=== PATIENT | female | born 2000 | race Caucasian/White ===

== ENCOUNTER 2024-06-20 06:21 | Outpatient (REF) | payer OTHER, SELFPAY ==
--- NOTE | ~2024-06-20 | US_ITS ---
CLINICAL HISTORY: IRREGULAR PERIODS, PELVIC PAIN US pelvis transabdominal and transvaginal Comparison: None Findings: Transabdominal scanning performed for overall anatomy. Transvaginal scanning performed for additional detail. Anteverted uterus is 6.8 cm length. Normal myometrium. Endometrium 6.2 mm thickness. No lesions. Right ovary 3.2 x 2.4 x 1.2 cm. Left ovary 3.1 x 2 x 1.7 cm. Normal color Doppler of both ovaries. No free fluid. IMPRESSION: 1. Normal pelvic ultrasound This document has been electronically signed by: Norah Guan MD on 06/21/2024 15:24:42
--- OUTSIDE RECORDS SUMMARY | 2024-06-20 06:24 | XMS_ITS | Patient Health Record ---
Author Organization [facility] Address [address] [address] Care Team Providers Care Program Coordinator Name Role Phone Desmond Garcia Primary Care Provider Unavailabl e ALLERGIES No Known Allergies REASON FOR REFERRAL No Information MEDICATIONS Medication SIG (Take, Route, Frequency, Duration) Notes Start Date End Date Status Ibuprofen Active PLAN OF TREATMENT No Information Insurance Providers Payer Name Payer Address Payer Phone Subscriber Number Group Number Insured Name Patient Relationship to Insured Coverage Start Date Coverage End Date [facility] [address] [place] [phone] [id number] Kyara Velasco Self - patient is the insured 0
--- OUTSIDE RECORDS SUMMARY | 2024-06-20 06:24 | XMS_ITS | Encounter Summary ---
Author Organization [facility] Address [address] [place] [address] Care Team Providers Care Senior Process Engineer Name Role Phone Earl Mills MD Primary Care Provider [phone] Earl Mills MD Unavailable [phone] Encounter Details Date Type Department Care Team (Late st Contact Info) Description 04/20/2024 Community Orders [facility] Marla Peguero NP [address] [place] [address], [address] [place] [address] Amenorrhea (Primary Dx) Social History Tobacco Use Types Packs/Day Years Used Date Smoking Tobacco: Never Assessed Comments Unknown Sex and Gender Information Value Date Recorded Sex Assigned at Female 03/26/2018 10:37 AM EST Legal Sex Female 3:09 PM EST Gender Identity Female 03/26/2018 10:37 AM EST Sexual Orientation Not on file documented as of this encounter Plan of Treatment Not on file documented as of this encounter Results * HCG, Quantitative (04/26/2024 4:37 PM EST) hCG, Quant <2 <5 mIU/mL 04/26/2024 7:19 PM EST [facility] Comment: ? Weeks Post LMP ? Approximate HCG (last menstrual period) ? 3-4 ??weeks ? 9-130 IU/L ? 4-5 ??weeks ?72-2600 IU/L ? 5-6 ??weeks ? 850-89587 IU/L ? 6-7 ??weeks ?4000-407150 IU/L ? 7-12 weeks ? 77488-903637 IU/L ?12-16 weeks ? 90805-110456 IU/L ?16-29 weeks ?1400-86774 IU/L ?29-41 weeks ? 940-30500 IU/L ?? The B-HCG assays is cleared for use in the early detection of only. ??It is not approved for any other uses such as tumor marker screening, tumor marker monitoring, etc and it should not be performed for any other uses. Blood PERIPHERAL BLOOD SPECIMEN / Unknown Venipuncture / Unknown 04/26/2024 4:37 PM EST 04/26/2024 4:37 PM EST us Marla Peguero [employer] [employer] [facility] BLOOD ORDERABLES Final Res ult [facility] [address] [facility] ([place], [place]) [place] [address], * 17-HydroxyProgesterone (04/26/2024 4:37 PM EST) 17-Hydroxyproges terone 84 see note ng/dL 05/02/2024 2:00 PM EST [facility] Comment: ?? ### Unable to flag abnormal result(s), please refer ?to reference range(s) below: ?? Adult Female Reference Ranges ??for 17-Hydroxyprogesterone: ?Pre-Menopausal Mid Follicular: ??23 - 102 ng/dL ??Pre-Menopausal Surge: ? 67 - 349 ng/dL ??Pre-Menopausal Mid Luteal: ? 139 - 431 ng/dL ??Postmenopausal Phase: ?< or = 45 ng/dL ?Female Fahad Stages: ?II - III Females: ??18 - 220 ng/dL ??IV - V ?? Females: ??36 - 200 ng/dL ? Includes data from J Clin Endocrinol Metab. ??1990;73:674-686; J Clin Endocrinol Metab. ??1989;69;3206-2304; J Clin Endocrinol Metab. ??1994;78:226-270. Pediatr Res 1988;23:525-529. ??MedLinePlus (accessed 08/21/13). ?? This test was developed and its analytical performance characteristics have been determined by [employer] [facility] [place], [place]. It has not been cleared or approved by the U.S. Food and Drug Administration. This assay has been validated pursuant to the CLIA regulations and is used for clinical purposes. ?? Blood PERIPHERAL BLOOD SPECIMEN / Unknown Venipuncture / Unknown 04/26/2024 4:37 PM EST 04/26/2024 4:37 PM EST Narrative [facility] - 05/02/2024 2:00 PM EST Performing Organization Information: ?Site ID: [id number] ?Name: [facility] ?Address: [address] [place] [address] ?Director: MONAE ANDERSON MD,PHD Marla Peguero [employer] BLOOD ORDERABLES Final Res ult [facility] [address] [place] [address], * Testosterone, Free, Total and Bioavailable (04/26/2024 4:37 PM EST) [facility] Signature Testosterone 64 40 - 75 ng/dL [facility] [id number] 04/27/2024 9:34 AM EST [facility] Sex Hormone Binding Globulin 37.7 18.0 - 136.0 nmol/L [facility] [id number] 04/27/2024 9:34 AM EST [facility] Albumin, Blood 4.2 3.4 - 5.2 g/dL [facility] [id number] 04/27/2024 9:34 AM EST [facility] Testosterone, Bioavailable 24 >30 ng/dL ng/dL [facility] [id number] 04/27/2024 9:34 AM [facility] Testosterone, Free Calculated 11 <17 pg/mL [facility] [id number] 04/27/2024 9:34 AM EST [facility] Blood PERIPHERAL BLOOD SPECIMEN / Unknown Venipuncture / Unknown 04/26/2024 4:37 PM EST 04/26/2024 4:37 PM EST Marla Peguero [employer] [employer] BLOOD ORDERABLES Final Res ult Performing Organization Address [facility] [place] [address] * DHEA-Sulfate (04/26/2024 4:37 PM EST) DHEA Sulfate 247 105 - 519 ug/dL 04/27/2024 9:38 AM EST [facility] Blood PERIPHERAL BLOOD SPECIMEN / Unknown Venipuncture / Unknown 04/26/2024 4:37 PM EST 04/26/2024 4:37 PM EST Marla Peguero [employer] [employer] BLOOD ORDERABLES Final Res ult Performing Organization Address [facility] de Phone Number [address] [address] * Estradiol (04/26/2024 4:37 PM EST) Estradiol Level 32 See comment pg/mL 04/26/2024 7:22 PM EST [facility] Comment: Normally Menstruating Females: ?Follicular Phase: 21-251 ?Mid-Cycle Peak ?38-649 ?Luteal Phase ?21-312 Post-menopausal Females: ?? Not on HRT ?<10-28 ?? On HRT ?<10-144 Male Reference Range: 11-44 False high Estradiol results have been shown in patients being treated with or recently treated with Mifepristone. ??Based on the bioavailability, patients treated with Mifepristone should not be tested with this Estradiol assay for up to 2 weeks following treatment. ?? The drug Fulvestrant (Falsodex) may interfere with the COMMERCIAL CONSTRUCTION SUPERINTENDENT Estradiol assay leading to falsely elevated Estradiol results. ??The potential risks to health applies only to patients being treated with the drug Fulvestrant which may lead to increased Estradiol results. Blood PERIPHERAL BLOOD SPECIMEN / Unknown Venipuncture / Unknown 04/26/2024 4:37 PM EST 04/26/2024 4:37 PM EST Marla Peguero LAB BLOOD ORDERABLES Final Res ult Performing Organization Address [facility] de Phone Number [facility] [address] [place] [address], * Luteinizing Hormone (04/26/2024 4:37 PM EST) LH 10.0 See Comment mIU/mL 04/26/2024 7:21 PM EST [facility] Comment: Normally Menstruating Females: ?? Follicular Phase: 1.8-11.8 mIU/mL ?? Mid-Cycle Peak ?7.6-89.1 mIU/mL ?? Luteal Phase ?0.6-14.0 mIU/mL ?? Post-menopausal Females without HRT 5.2-62.0 mIU/mL Males: 0.6-12.1 mIU/mL LH calibration is referenced to the World Health Organization (WHO) Lutenizing Hormone Human, Pituitary 2nd International Standard 80/552. ?? Blood PERIPHERAL BLOOD SPECIMEN / Unknown Venipuncture / Unknown 04/26/2024 4:37 PM EST 04/26/2024 4:37 PM EST Marla Peguero LAB BLOOD ORDERABLES Final Res ult Performing Organization Address [facility] de Phone Number [facility] [address] [place] [address], * Follicle Stimulating Hormone (04/26/2024 4:37 PM EST) FSH 5.4 See Comment mIU/ml 04/26/2024 7:22 PM EST [facility] Comment: Males: 1-8 Normally Menstruating Females: ?? Follicular Phase: 4-13 ?? Mid-Cycle Peak ?5-22 ?? Luteal Phase ?2-13 Post-menopausal Females 20-138 Blood PERIPHERAL BLOOD SPECIMEN / Unknown Venipuncture / Unknown 04/26/2024 4:37 PM EST 04/26/2024 4:37 PM EST us Marla Peguero [employer] [facility] BLOOD ORDERABLES Final Res ult [facility] [address] [place] [address], documented in this encounter Visit Diagnoses Diagnosis Amenorrhea- Primary Absence of menstruation documented in this encounter Care Teams Senior Process Engineer Relationship Specialty Start Date End Date Earl Mills MD [address] [place] [address] PCP - General 01/10/24 Earl Mills MD [address] [place] [address] PCP - Insurance Assigned PCP 04/26/24 documented as of this encounter
--- OUTSIDE RECORDS SUMMARY | 2024-06-20 06:24 | XMS_ITS | Encounter Summary ---
Author Organization [facility] Perea [facility] Address [address] [place] [address] Care Team Providers Care Program Management Manager Name Role Phone Desmond Garcia MD Primary Care Provider [phone] Earl Mills MD Primary Care Provider [phone] Earl Mills MD Unavailable [phone] Encounter Details Date Type Department Care Team (Latest Contact Info) Description 12/14/2018 Lab Requisition [facility] [address] [place] [address] Marla Peguero NP 21 [facility], [facility] [address] [place] [address] Encounter for gynecological examination (general) (routine) without abnormal findings; Encounter for screening for infections with a predominantly sexual mode of transmission Social History Tobacco Use Types Packs/Day Years [...] on file documented as of this encounter Procedures Procedure Name Priority Date/Time Associated Diagnosis Comments AMPLIFIED PROBE, CHLAM AND GC, SWAB Routine 12/14/2018 8:33 PM EDT Encounter for gynecological examination (general) (routine) without abnormal findings Encounter for screening for infections with a predominantly sexual mode of transmission documented in this encounter Results * Chlamydia and GC, Amplified Probe, Swab (12/14/2018 8:33 PM EDT) N. gonorrhoeae by Amplified Probe Negative Negative 12/15/2018 11:23 AM EDT [facility] C. trachomatis by Amplified Probe Negative Negative 12/15/2018 11:23 AM EDT [facility] Specimen from genital system (specimen) 12/14/2018 8:33 PM EDT 12/14/2018 8:33 PM EDT Narrative [facility] - 12/15/2018 11:23 AM EDT This test is approved for vaginal, endocervical, thin prep and urine specimens. The reliability of testing from other sites has not been established. This assay is not intended to be used as a test of cure; a culture is suggested. Testing performed using the Eleonora Elizabeth real time PCR platform. us Marla Peguero LUNCH WAGON OPERATOR MICROBIOLOGY - GENERAL ORDERAB LES Final Result [facility] [address] [place] [address], documented in this encounter Visit Diagnoses Diagnosis Encounter for gynecological examination (general) (routine) without abnormal findings Encounter for screening for infections with a predominantly sexual mode of transmission documented in this encounter Additional Health Concerns Infection Onset Date Last Indicated Resolved Time COVID Suspect 01/29/2020 02/02/2020 02/05/2020 1:5 5 AM EST COVID Suspect 02/07/2020 02/07/2020 03/08/2020 12: 25 AM EST documented as of this encounter Care Teams Program Management Manager Relationship Specialty Start Date End Date Desmond Garcia MD [address] [place] [address] PCP - General Pediatric Medicine 03/26/18 01/09/24 Earl Mills MD [address] [place] [address] PCP - General 01/10/24 Earl Mills MD [address] [place] [address] PCP - Insurance Assigned PCP 04/26/24 documented as of this encounter
--- OUTSIDE RECORDS SUMMARY | 2024-06-20 06:24 | XMS_ITS | Patient Health Record ---
Author Organization [facility] Address [address] [facility] [place] [id number] Care Team Providers Care Legal Biller Name Role Phone Desmond Garcia Primary Care Provider Zeke Lunsford Unavailable [phone] Reason For Referral No Information Social History Tobacco Use: Social History Observation Description Date Details (start date - stop date) Never Smoker NA - NA Tobacco Use: Question Answer Notes Never smoked Problems Problem Type SNOMED Code ICD Code Onset Dates Problem Status W/U Status Risk Notes Problem Knee sprain (19039977) Knee sprain (844.9) Active confirmed Plan Of Treatment Pending Test Test Name Order Date LE - ACTIVE ICE KNEE 08/13/2014 LE - SHORT/TALL VICTOR BOOT 07/15/2018 LE - HINGED GRIPPER KNEE BRACE 5 Insurance Providers Payer Name Payer Address Payer Phone Subscriber Number Group Number Insured Name Patient Relationship to Insured Coverage Start Date Coverage End Date [facility] [address] [place] [id number] Tam Velasco Child - Insured has Financial Responsibility Medical (General) History Medical History History ICD Code drastic temp change Surgical History Surgery Date(Month/Year)
--- OUTSIDE RECORDS SUMMARY | 2024-06-20 06:24 | XMS_ITS | Encounter Summary ---
Author Organization [facility] Pe[facility] Address [address] [place] [address] Care Team Providers Care Beekeeper Farmer Name Role Phone Earl Mills MD Primary Care Provider [phone] Earl Mills MD Unavailable [phone] Encounter Details Date Type Department Care Team (Late st Contact Info) Description 01/10/2024 Lab Requisition [facility] [address] [place] [address] Marla Peguero NP 21 [facility], [facility] [address] [place] [address] Ulceration of vulva Social History Tobacco Use Types Packs/Day Years [...] Procedure Name Priority Date/Time Associated Diagnosis Comments HERPES SIMPLEX BY PCR, CSF & NON-STERILE SITES Routine 01/10/2024 1:00 PM EST Ulceration of vulva documented in this encounter Results * (ABNORMAL) Herpes Simplex by PCR, Blood CSF & Non-sterile Sites (01/10/2024 1:00 PM EST) Herpes Simplex Virus PCR TYPE 1 DNA DETECTED( A) Not Detected 01/12/2024 5:24 PM EST [facility] xOther (Other (specify)) 01/10/2024 1:00 PM EST 01/10/2024 8:35 PM EST Narrative [facility] - 01/12/2024 5:24 PM EST This test was developed and its performance characteristics determined by [facility] laboratory. ??It has not been cleared or approved by the U.S. Food and Drug Administration. ??FDA does not require this test to go through premarket FDA review. This test is used for clinical purposes. ??It should not be regarded as investigational or for research. ??This laboratory is certified under Clinical Laboratory Improvement Amendments (CLIA) as qualified to perform high complexity clinical laboratory testing. Method: Polymerase chain reaction. Marla Peguero WIND FARM OPERATIONS MANAGER MICROBIOLOGY - GENERAL ORDERAB LES Final Result [place] [id number] documented in this encounter Visit Diagnoses Diagnosis Ulceration of vulva documented in this encounter Care Teams Beekeeper Farmer Relationship Specialty Start Date End Date Earl Mills MD [address] [place] [address] PCP - General 01/10/24 Earl Mills MD [address] [place] [address] PCP - Insurance Assigned PCP 04/26/24 documented as of this encounter
--- OUTSIDE RECORDS SUMMARY | 2024-06-20 06:24 | XMS_ITS | Encounter Summary ---
Author Organization Aly[facility] Perea [facility] Address [address] [place] [address] Care Team Providers Care Retread Mold Operator Name Role Phone Desmond Garcia MD Primary Care Provider [phone] Earl Mills MD Primary Care Provider [phone] Earl Mills MD Unavailable [phone] Encounter Details Date Type Department Care Team (Latest Contact Info) Description 12/20/2019 Lab Requisition [facility] C[facility] [address] [place] [address] Marla Peguero NP 21 [facility], [facility] [address] [place] [address] Encounter for gynecological examination (general) (routine) without [...] AMPLIFIED PROBE, CHLAM AND GC, SWAB Routine 12/20/2019 8:55 PM EDT Encounter for gynecological examination (general) (routine) without abnormal findings Encounter for screening for infections with a predominantly sexual mode of transmission documented in this encounter Results * Chlamydia and GC, Amplified Probe, Swab (12/20/2019 8:55 PM EDT) N. gonorrhoeae by Amplified Probe Negative Negative 12/21/2019 3:40 PM EDT [facility] C. trachomatis by Amplified Probe Negative Negative 12/21/2019 3:40 PM EDT [facility] Specimen from genital system (specimen) 12/20/2019 8:55 PM EDT 12/20/2019 8:56 PM EDT Narrative [facility] - 12/21/2019 3:40 PM EDT This test is approved for vaginal, endocervical, thin prep and urine specimens. The reliability of testing from other sites has not been established. This assay is not intended to be used as a test of cure; a culture is suggested. Testing performed using the Eleonora Elizabeth real time PCR platform. us Marla Peguero ASSOCIATE PROFESSOR OF LIBRARY MEDIA MICROBIOLOGY - GENERAL ORDERAB LES Final Result [facility] [address] [place] [address], documented in this encounter Visit Diagnoses Diagnosis [...] documented as of this encounter Care Teams Retread Mold Operator Relationship Specialty Start Date End Date Desmond Garcia MD [address] [place] [address] PCP - General Pediatric Medicine 03/26/18 01/09/24 Earl Mills MD [address] [place] [address] PCP - General 01/10/24 Earl Mills MD [address] [place] [address] PCP - Insurance Assigned PCP 04/26/24 documented as of this encounter
--- OUTSIDE RECORDS SUMMARY | 2024-06-20 06:24 | XMS_ITS | Encounter Summary ---
Author Organization Alyx Perea [facility] Address [address] [place] [address] Care Team Providers Care Water Supervisor Name Role Phone Desmond Garcia MD Primary Care Provider [phone] Earl Mills MD Primary Care Provider [phone] Earl Mills MD Unavailable [phone] Encounter Details Date Type Department Care Team (Late st Contact Info) Description 02/10/2020 Lab Requisition [facility] [address] [place] [address] Mayra Pantoja MD [address] [place] [address] Viral infection, unspecified Social History Tobacco Use Types Packs/Day Years [...] Procedure Name Priority Date/Time Associated Diagnosis Comments CULTURE, AEROBIC, STREP A, THROAT Routine 02/10/2020 10:30 AM EST Viral infection, unspecified documented in this encounter Results * Culture, Aerobic, Strep A, throat (02/10/2020 10:30 AM EST) Culture No Beta hemolytic Streptococcus group A, C or G CHAKA 02/12/2020 6:47 AM EST [facility] xThroat STRUCTURE OF ANTERIOR PORTION OF NECK / Unknown 02/10/2020 10:30 AM EST 02/10/2020 12:48 PM EST Mayra Pantoja MD MICROBIOLOGY - GENERAL ORDERA BLES Final Result [facility] [address] [place] [address], documented in this encounter Visit Diagnoses Diagnosis Viral infection, unspecified documented in this encounter Additional Health Concerns Infection Onset Date Last Indicated Resolved Time COVID Suspect 02/07/2020 02/07/2020 03/08/2020 12: 25 AM EST documented as of this encounter Care Teams Water Supervisor Relationship Specialty Start Date End Date Desmond Garcia MD [address] [place] [address] PCP - General Pediatric Medicine 03/26/18 01/09/24 Earl Mills MD [address] [place] [address] PCP - General 01/10/24 Earl Mills MD [address] [place] [address] PCP - Insurance Assigned PCP 04/26/24 documented as of this encounter
--- OUTSIDE RECORDS SUMMARY | 2024-06-20 06:24 | XMS_ITS | Clinical Summary ---
Author Organization [facility] Address [address] [place] [address] Care Team Providers Care Credit Officer Name Role Phone Earl Mills MD Primary Care Provider [phone] Allergies Active Allergy Reactions Criticality Noted Date Comments Amoxicillin 09/06/2023 rash Medications Medication Sig Dispensed Refills Start Date End Date Status cetirizine (ZyrTEC) 10 mg tablet Take 10 mg by mouth once daily. Active valACYclovir (Valtrex) 500 mg tablet Take by mouth. 01/10/2024 Active escitalopram (Lexapro) 5 mg tabletIndications:Mod erate anxiety Take 1 tablet (5 mg) by mouth once daily. 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 Discussed with patient. Resolved Problems Problem Noted Date Diagnosed Date Resolved Date Leukocytosis 09/22/2023 02/28/2024 Overview (09/22/2023): CBC will be rechecked. It is quite possible she had some kind of inflammation or infection at that time. Feeding drive 09/22/2023 02/28/2024 Overview (09/22/2023): Labs will be checked. Migraine without aura and wi thout status migrainosus, not intractable 02/25/2023 02/25/2023 02/25/2023 Urticaria due to cold 02/25/20232023 Overview (02/25/2023): Since history. No hx of anaphylaxis. No med or food allergys. No atopy, no asthma. Uses oral contraception 02/25/202311/2023 Diagnosis unknown 10/20/2012 02/25/2023 02/25/2023 Overview (02/25/2023): Text: Cold Urticaria Encounters Date Type Department Care Team Description 04/26/2024 External Contact EXT REF LAB [address] [address] Rom, Default Authenticator from Last 3 Months Immunizations Name Administration Dates Next Due Influenza, injectable, quadr ivalent, preservative free 02/07/2023,02/24/2022,02/21/2021,01/17,01/16/2019 Meningococcal MCV4P 01/16/2019 Tdap 02/21/2021 Family History Medical History Relation Name Comments HTN Father No Known Problems Father's Brother No Known Problems Father's Sister old age Maternal Grandfather Anxiety disorder Mother No Known Problems Mother's Brother No Known Problems Mother's Sister Colon cancer Paternal Grandfather Anxiety disorder Sister x2 Breast cancer Neg Hx Clotting disorder Neg Hx Ovarian cancer Neg Hx Uterine cancer Neg Hx Relation Name Status Comments Father Alive Father's Brother Father's Sister Maternal Grandfather Maternal Grandmother Mother Alive Mother's Brother Mother's Sister Paternal Grandfather Paternal Grandmother Alive Sister x2 Social History Tobacco Use Types Packs/Day Years Used Date Smoking Tobacco: Never Smokeless Tobacco: Never Tobacco Cessation:Counseling Given: Not Answered Alcohol Use Standard Drinks/Week Comments Yes 4 (1 standard drink = 0.6 oz pur e alcohol) Humiliation, Afraid, Rape, and Kick questionnair e Answer Date Recorded Within the last year, have y ou been afraid of your partner or ex-partner? No 08/04/2023 Within the last year, have y ou been humiliated or emotionally abused in other ways by your partner or ex-partner? No Within the last year, have y ou been kicked, hit, slapped, or otherwise physically hurt by your partner or ex-partner? No 08/04/2023 Within the last year, have y ou been raped or forced to have any kind of sexual activity by your partner or ex-partner? No 08/04/2023 AUDIT-C Answer Date Recorded Q1: How often do you have a drink containing alc ohol? 2-3 times a week 02/28/2024 Q2: How many drinks containi ng alcohol do you have on a typical day when you are drinking? 1 or 2 02/28/2024 Q3: How often do you have si x or more drinks on one occasion? Never 02/28/2024 Overall Financial Resource Strain (CARDIA) Answe r Date Recorded How hard is it for you to pa y for the very basics like food, housing, medical care, and heating? Not hard at all 02/28/2024 PHQ-2 Answer Date Recorded Patient Health Questionnaire-2 Score 0 02/28/2024 [facility] - Occupational Stress Questionnaire Answer Date Recorded Do you feel stress - tense, restless, nervous, or anxious, or unable to sleep at night because your mind is troubled all the time - these days? Not at all 07/22/2022 Exercise Vital Sign Answer Date Recorde d On average, how many days pe r week do you engage in moderate to strenuous exercise (like a brisk walk)? 7 days 08/04/2023 On average, how many minutes do you engage in exercise at this level? 60 min 08/04/2023 Hunger Vital Sign Answer Date Recorded Within the past 12 months, y ou worried that your food would run out before you got the money to buy more. Never true 02/28/20 24 Within the past 12 months, t he food you bought just didn't last and you didn't have money to get more. Never true 02/28/2024 PRAPARE - Transportation Answer Date Re corded In the past 12 months, has l ack of transportation kept you from medical appointments or from getting medications? No 02/06 In the past 12 months, has l ack of transportation kept you from meetings, work, or from getting things needed for daily living? No 02/28/2024 Housing Stability Vital Sign Answer Joseph e Recorded In the last 12 months, was t here a time when you were not able to pay the mortgage or rent on time? No 11/15/2023 Number of Places Lived in the Last Year Not on f ile 11/15/2023 In the last 12 months, was t here a time when you did not have a steady place to sleep or slept in a half-way (including now)? No 11/15/2023 Housing Stability Vital Sign Answer Joseph e Recorded In the last 12 months, was t here a time when you were not able to pay the mortgage or rent on time? No 02/28/2024 Number of Times Moved in the Last Year Not on fi le 02/28/2024 At any time in the past 12 m [facility], were you homeless or living in a half-way (including now)? No 02/28/2024 Sex and Gender Information Value Date Recorded Sex Assigned at Not on file Gender Identity Not on file Sexual Orientation Not on file Job Start Date Occupation Industry Not on file Not on file Not on file Last Filed Vital Signs Vital Sign Reading Time Taken Comments Blood Pressure 118/64 02/28/2024 9:07 AM EST Pulse 83 02/28/2024 9:07 AM EST Temperature 36.9 ??C (98.5 ??F) 02/28/2024 9:07 AM ES T Respiratory Rate - - Oxygen Saturation 99% 02/28/2024 9:07 AM EST Inhaled Oxygen Concentration - - Weight 79.9 kg (176 lb 3.2 oz) 02/28/2024 9:07 A M EST Height 172.7 cm (5' 8 ) 02/28/2024 9:07 AM EST Body Mass Index 26.79 02/28/2024 9:07 AM EST Plan of Treatment Upcoming Encounters Date Type Department Care Team (Late st Contact Info) Description 03/06/2025 8:00 AM EST Office Visit [facility] Danny [address] [place] [phone] Earl Mills MD [address] [place] [id number] Health Maintenance Due Date Last Done Comments HIV Screening 2002 MMR Vaccines (1 of 1 - Standard series) 10/05/2003 Varicella Vaccines (1 of 2 - 13+ 2-dose series) 10/05/2015 HPV Vaccines (1 - 3-dose series) 2017 Meningococcal B Vaccine (1 of 2 - Standard) 2018 Hepatitis B Vaccines (1 of 3 - 19+ 3-dose series) 2021 Pap Smear 10/05/2023 COVID-19 Vaccine ( - season) 2023 03/03/2021, 07/01/2020, 06/03/2020 Depression Screening 03/08/2024 02/28/2024 Chlamydia Screening 08/03/2024 08/04/2023, 08/04/2023, 07/22/2022, Additional history exists Influenza Vaccine (Season Ended) 2024 02/07/2023, 02/24/2022, 02/21/2021, Additional history exists DTaP/Tdap/Td Vaccines (2 - Td or Tdap) 02/21/2031 02/21/2021 Meningococcal Vaccine Completed 01/16/2019 Hepatitis C Screening Completed 03/02/2023 HIB Vaccines Aged Out No longer eligi ble based on patient's age to complete this topic Hepatitis A Vaccines Aged Out No long er eligible based on patient's age to complete this topic IPV Vaccines Aged Out No longer eligi ble based on patient's age to complete this topic Pneumococcal Vaccine: Pediatrics (0 to 5 Years) and At-Risk Patients (6 to 49 Years) Aged Out No longer eligible based on patient's age to complete this topic Rotavirus Vaccines Aged Out No longer eligible based on patient's age to complete this topic Procedures Procedure Name Priority Date/Time Associated Diagnosis Comments 17-HYDROXYPROGESTERO NE Routine 04/26/2024 4:37 PM EST DHEA-SULFATE Routine 04/26/2024 4:37 PM EST TESTOSTERONE, FREE, TOTAL AND SEX HORMONE BINDING GLOBULIN Routine 04/26/2024 4:37 PM EST ESTRADIOL Routine 04/26/2024 4:37 PM EST FOLLICLE STIMULATING HORMONE Routine 04/26/2024 4:37 PM EST LH Routine 04/26/2024 4:37 PM EST HCG, QUANTITATIVE, Routine 04/26/2024 4:37 PM EST GC/CT (AMP DNA) Routine 08/04/2023 4:00 PM EDT Screen for STD (sexually transmitted disease) HCV AB W/REFLEX QUANT PCR (SCREENING) Routine 03/02/2023 11:30 AM EST from Last 3 Months or Most Recently Relevant to Health Maintenance Results * 17-Hydroxyprogesterone (04/26/2024 4:37 PM EST) [facility] 17-HYDROXYPROGES TERONE 84 see note ng/dL CHARISSE PAYTON Comment: ?? ### Unable to flag abnormal [...] Endocrinol Metab. ??1990;73:674-686; J Clin Endocrinol Metab. ??1989;69;2343-6350; J Clin Endocrinol Metab. ??1994;78:226-270. Pediatr Res 1988;23:525-529. ??MedLinePlus (accessed 08/21/13). ?? This test was developed and its analytical performance characteristics have been determined by [facility] [place]. It has not been cleared or approved by the U.S. Food and Drug Administration. This assay has been validated pursuant to the CLIA regulations and is used for clinical purposes. ?? Blood 04/26/2024 4:37 PM EST 04/26/2024 11:36 PM EST Narrative CHARISSE ATTA - 05/02/2024 2:00 PM EST [address] [address] Ordering Provider: MARLA HARRIS Copied To: ?? Performing Organization Information: ?Site ID: [id number] ?Name: [employer] ?Address: [address] [place] [address] ?Director: MONAE ANDERSON MD,PHD Marla Smallwood NP LAB BLOOD ORDERAB LES Performing Organization Address City/[facility] Co de Phone Number CHARISSELUDIVINA PAYTON [address] [place] [address], * DHEA-sulfate (04/26/2024 4:37 PM EST) DHEA SULFATE 247 105 - 519 ug/dL CHARISSE PAYTON Comment:Regulator Tester: MOHIT GARCIA Blood 04/26/2024 4:37 PM EST 04/27/2024 8:43 AM EST Berta CHARISSE TATA - 04/27/2024 9:38 AM EST [address] [address] Ordering Provider: MARLA HARRIS Copied To: ?? Marla Smallwood NP LAB BLOOD ORDERAB LES Performing Organization Address [facility] de Phone Number CHARISSE KOWALSKI[address] * Estradiol (04/26/2024 4:37 PM EST) ESTRADIOL 32 See comment pg/mL CHARISSE PAYTON Comment: Normally Menstruating Females: ?Follicular Phase: 21-251 [...] drug Fulvestrant (Falsodex) may interfere with the DIRECTOR PROFESSIONAL SERVICES Estradiol assay leading to falsely elevated Estradiol results. ??The potential risks to health applies only to patients being treated with the drug Fulvestrant which may lead to increased Estradiol results. Regulator Tester: ROGER DONOVAN Blood 04/26/2024 4:37 PM EST 04/26/2024 6:05 PM EST Narrative WILBUR TATA - 04/26/2024 7:22 PM EST [facility] [address] [place] [address] Ordering Provider: MARLA HARRIS Copied To: ?? Marla Smallwood ASSISTANT HVAC MECHANIC LAB BLOOD ORDERAB LES WILBUR TATA [address] [place] [address], * Testosterone, Free, Total and Sex Hormone Binding Globulin (04/26/2024 4:37 PM EST) TESTOSTERONE 64 40 - 75 ng/dL [facility] SHBG SEX HORMONE BINDING GLOBULIN 37.7 18.0 - 136.0 nmol/L [facility] ALBUM[facility], BLOOD 4.2 3.4 - 5.2 g/dL [facility] BIOAVAILABLE TESTOSTERONE 24 >30 ng/dL ng/dL [facility] CALC FREE TESTOSTERONE PGML 11 <17 pg/mL [facility] Comment:Regulator Tester: MOHIT GARCIA Blood 04/26/2024 4:37 PM EST 04/27/2024 8:43 AM EST Narrative CHARISSE PAYTON - 04/27/2024 9:34 AM EST [facility] [address] [place] [address] Ordering Provider: MARLA HARRIS Copied To: ?? Marla Smallwood ASSISTANT HVAC MECHANIC LAB BLOOD ORDERAB LES Performing Organization Address City/State/[facility] Co de Phone Number CHARISSE PAYTON [address] [place] [address], * hCG, quantitative, (04/26/2024 4:37 PM EST) HCG, QUANTITATIVE <2 <5 mIU/mL MADYSON BART PAYTON Comment: ? Weeks Post LMP ? Approximate HCG (last menstrual period) ? 3-4 ??weeks ? 9-130 IU/L ? 4-5 ??weeks ?72-2600 IU/L ? 5-6 ??weeks ? 850-12630 IU/L ? 6-7 ??weeks ?4000-047190 IU/L ? 7-12 weeks ? 10195-184497 IU/L ?12-16 weeks ? 14742-413388 IU/L ?16-29 weeks ?1400-47264 IU/L ?29-41 weeks ? 940-61437 IU/L ?? The B-HCG assays is cleared for use in the early detection of only. ??It is not approved for any other uses such as tumor marker screening, tumor marker monitoring, etc and it should not be performed for any other uses. Regulator Tester: ROGER DONOVAN Blood 04/26/2024 4:37 PM EST 04/26/2024 6:05 PM EST Narrative CHARISSE PAYTON - 04/26/2024 7:19 PM EST [facility] [address] [place] [address] Ordering Provider: MARLA HARRIS Copied To: ?? Marla Smallwood ASSISTANT HVAC MECHANIC LAB BLOOD ORDERAB LES Performing Organization Address [facility] de Phone Number CHARISSELUDIVINA PAYTON [address] [place] [address], * LH (04/26/2024 4:37 PM EST) LUTEINIZING HORMONE 10.0 See Comment mIU/mL CHARISSE PAYTON Comment: Normally Menstruating Females: ?? Follicular Phase: 1.8-11.8 mIU/mL ?? Mid-Cycle Peak ?7.6-89.1 mIU/mL ?? Luteal Phase ?0.6-14.0 mIU/mL ?? Post-menopausal Females without HRT 5.2-62.0 mIU/mL Males: 0.6-12.1 mIU/mL LH calibration is referenced to the World Health Organization (WHO) Lutenizing Hormone Human, Pituitary 2nd International Standard 80/552. ?? Regulator Tester: ROGER DONOVAN Blood 04/26/2024 4:37 PM EST 04/26/2024 6:05 PM EST Narrative CHARSISE PAYTON - 04/26/2024 7:21 PM EST [facility] [address] [place] [address] Ordering Provider: MARLA HARRIS Copied To: ?? Marla Smallwood ASSISTANT HVAC MECHANIC LAB BLOOD ORDERAB LES Performing Organization Address [facility] Co de Phone Number WILBUR TATA [address] [place] [address], * FSH (04/26/2024 4:37 PM EST) FSH 5.4 See Comment mIU/ml CHARISSE PAYTON Comment: Males: 1-8 Normally Menstruating Females: ?? Follicular Phase: 4-13 ?? Mid-Cycle Peak ?5-22 ?? Luteal Phase ?2-13 Post-menopausal Females 20-138 Regulator Tester: ROGER DONOVAN Blood 04/26/2024 4:37 PM EST 04/26/2024 6:05 PM EST Narrative CHARISSE PAYTON - 04/26/2024 7:22 PM EST [facility] [address] [place] [address] Ordering Provider: MARLA HARRIS Copied To: ?? Marla Smallwood ASSISTANT HVAC MECHANIC LAB BLOOD ORDERAB LES CHARISSE PAYTON [address] [place] [address], * Gonorrhea/ Chlamydia (Amp DNA) (08/04/2023 4:00 PM EDT) Pathologist [facility] C trach RAJI Negative Negative [facility] 1 N gonorrhoeae RAJI Negative Negative [facility] 1 Swab Endocervical structure / Unknown 08/04/2023 4:00 PM EDT 08/04/2023 Comment:CervEndo [id number]:Vi si Narrative [facility] - 08/06/2023 6:45 AM EDT Performed at: ??01 - [facility] [address] ??[id number] Regulator Tester: Lydia Hewitt MD, Phone: ??[phone] Marla Smallwood ASSISTANT HVAC MECHANIC LAB MICROBIOLOGY - GENERAL ORDERABLES Performing Organization Address City/[facility]/ZIP Co de Phone Number [facility] [address] [facility] 1 * Hepatitis C antibody (03/02/2023 11:30 AM EST) Hep C Virus Ab Non Reactive Non Reactive [facility] 1 Comment: HCV antibody alone does not differentiate between previously resolved infection and active infection. Equivocal and Reactive HCV antibody results should be followed up with an HCV RNA test to support the diagnosis of active HCV infection. 03/02/2023 11:3 0 AM EST 03/02/2023 Narrative [facility] - 03/03/2023 4:06 AM EST Performed at: ??01 - [facility] [place] [address], [place], [place] ??[id number] Regulator Tester: Lydia Hewitt MD, Phone: ??[phone] Earl Mills MD LAB BLOOD ORDERABLES [facility] [address] [facility] 1 from Last 3 Months or Most Recently Relevant to Health Maintenance Care Teams Credit Officer Relationship Specialty Start Date End Date Earl Mills MD [address] [place] [phone] PCP - General Family Medicine 02/25/23
--- OUTSIDE RECORDS SUMMARY | 2024-06-20 06:24 | XMS_ITS | Encounter Summary ---
Author Organization [facility] Address [address] [place] [address] Care Team Providers Care Manager Of Internal Audit Name Role Phone Joselyn Romero MD Primary Care Provider [phone] Desmond Garcia MD Primary Care Provider [phone] Earl Mills MD Primary Care Provider [phone] Earl Mills MD Unavailable [phone] Encounter Details Date Type Department Care Team (Late st Contact Info) Description 10/20/2012 Clinical Conversion Encounter Department of Allergy and Immunology [address] [place] [id number] Kimani Montana MD Social History Tobacco Use Types Packs/Day Years Used Date Smoking Tobacco: Never Assessed Comments Unknown Sex and Gender Information Value Date Recorded Sex Assigned at Female 03/26/2018 10:37 AM EST Legal Sex Female 3:09 PM EST Gender Identity Female 03/26/2018 10:37 AM EST Sexual Orientation Not on file documented as of this encounter Progress Notes * Kimani Montana MD - 04/24/2014 10:00 AM EST [id number] VELASCO [place], [place]. History of Present Illness Kyara is a 12-year-old girl with a istory of an urticarial-like eruption associated with irritability and fatigue and with mild puffiness of the hands and feet at times triggered by changes in air or water temperature from warm to cool. Although it has some features of cold-induced urticaria, it is not always typical, especially in the spring and fall There are some elements of the history that sounds suspicious for familial cold autoinflammatory syndrome. There is no family history, however. Since her visit to see me in August, she had 2 significant but very brief episodes lasting one day and one minor episode. Both of the significant episodes resulted in typical urticarial lesions as documented on an I-phone. In one instance she had large raised hives on her buttocks and on the other occasion she had significant hives that appear to be mostly flat up and down the back of her legs with some involvement of her buttocks as well. She had no fever or fatigue. Benadryl seemed to help. Her episodes during the spring and fall often last for days or several weeks. She never took cetirizine this summer. Her complete workup as noted below was negative. She saw Dr. Cavazos today in [place]. She does not believe she has urticarial vasculitis and suggested Xyzal possibly as a treatment. Mom says these episodes are different than the ones in the spring. Claritin did not help. Active Problems Arthralgias In Multiple Sites 719.49 Cold Urticaria 708.2 Fatigue 780.79 Urticaria 708.9 Current Meds Cetirizine HCl 10 MG Oral Tablet; Take 1 tab(s) orally daily; Therapy: [id number] to (Evaluate:[id number]) Allergies No Known Drug Allergies Vitals [facility] Vitals Data Includes: Current Encounter [id number] 03:38PM Blood Pressure: 103 / 62, RUE, Sitting Heart Rate: 86 BMI Calculated: 19.62 BSA Calculated: 1.34 Height: 4 ft 10.5 in Weight: 96 lb Height Source: Actual Height Weight Source: Actual Weight Pain Score: 0 Allergy Status Reviewed: Yes Safe at Home: Yes Chaperoned During Appointment: Yes Chaperoned By: Parent Physical Examination: The patient is well-developed, well-nourished, alert, and oriented and in no acute distress. Skin: Clear without rash. TMs: Both TMs appear normal. Ear canals are clear. Eyes: Conjunctivae appear normal without injection. There was no ocular discharge. Nose: Nasal turbinates appear 3+ edematous and pale. Clear mucoid discharge. Septum appears to be midline. Oropharynx: No postnasal discharge or thrush. No other abnormalities noted. Neck: No significant lymphadenopathy or mass noted. Lungs: Clear by ausculation. No wheezes, rhonchi or rales detected. Heart: Regular rate and rhythm. No murmur was heard. Extremities: No clubbing, cyanosis or edema. Assessment: Atypical cold-induced urticaria. ? familial cold autoinflammatory syndrome. Plan: 1. Cetirizine 10 mg once daily on a regular trial basis 2. Consider Xyzal as an alternative if she can't tolerate cetirizine 3. Prednisone 30 mg once daily for 2 or 3 days if necessary 4. Consider pedi rheumatology evaluation if no improvement. Results/Data Selected Results [id number] 11:01AM CBC with Differential Hematocrit: 35.3 % Reference Range 35.0-44.0 Hemoglobin: 11.7 G/DL Reference Range 11.7-14.8 MCV: 86 FL Reference Range 76-89 Platelet Count: 347 K/uL Reference Range 150-450 RBC: 4.12 M/uL Reference Range 3.50-4.40 RDW: 13.7 % Abnormal High Reference Range 11.5-13.4 WBC: 5.15 K/uL Reference Range 4.50-13.[address]: 0.02 K/uL Reference Range 0.02-0.[address]: 0.04 K/uL Reference Range 0.00-0.[address]: 2.57 K/uL Reference Range 1.4-6.[address]: 2.08 K/uL Reference Range 1.2-3.[address]: 0.44 K/uL Reference Range 0.2-1.0 Basophil: 0 % Eosinophil: 1 % Lymphocyte: 40 % Monocyte: 9 % Polys: 50 % WBC: 5.15 K/uL Reference Range 4.50-13.50 C-Reactive Protein (CRP) C-Reactive Protein: <1 MG/L Reference Range <5 Cryofibrinogen Cryofibrinogen: 0 % Reference Range <1 Anti-Thyroglobulin Antibody Thyroglobulin Ab: <0.9 IU/ML Anti-Thyroid Peroxidase Antibody Anti-Thyroid Perox Ab: <60 IU/ML Reference Range <60 Antinuclear Antibody Screen Antinuclear Ab Screen: NEG Reference Range NEG Cryoglobulin Cryoglobulin: 0 % Reference Range <1 Complement Activity, Total CH50: 101 UNITS Signatures Electronically signed by : KIMANI MONTANA MD; Oct 20 2012 4:40PM documented in this encounter Plan of Treatment Not on file documented as of this encounter Visit Diagnoses Not on filedocumented in this encounter Additional Health Concerns Infection Onset Date Last Indicated Resolved Time COVID Suspect 01/29/2020 02/02/2020 02/05/2020 1:5 5 AM EST COVID Suspect 02/07/2020 02/07/2020 03/08/2020 12: 25 AM EST documented as of this encounter Care Teams Manager Of Internal Audit Relationship Specialty Start Date End Date Joselyn Romero MD PCP - General 01/15/14 03/25/18 Desmond Garcia MD [address] [place] [id number] PCP - General Pediatric Medicine 03/26/18 01/09/24 Earl Mills MD [address] [place] [address] PCP - General 01/10/24 Earl Mills MD [address] [place] [address] PCP - Insurance Assigned PCP 04/26/24 documented as of this encounter
--- OUTSIDE RECORDS SUMMARY | 2024-06-20 06:24 | XMS_ITS | Clinical Summary ---
Author Organization Alyx dozier Address [address] [place] [address] Care Team Providers Care Embedded Software Test Engineer Name Role Phone Earl Mills MD Primary Care Provider [phone] Earl Mills MD Unavailable [phone] Allergies Active Allergy Reactions Criticality Noted Date Comments No Known Drug Allergies Other (See Comments) Medications cetirizine (ZyrTEC) 10 MG tablet Take 1 tab(s) orally daily 10/20/2012 Active prednisone (DELTASONE) 10 MG tablet 3 tabs daily for 2-3 days for severe epsiodes of hives 10/20/2012 Active Active Problems Problem Noted Date Diagnosed Date Fatigue 10/20/2012 Overview (05/07/2014): Fatigue Multiple joint pain 10/20/2012 Overview (05/07/2014): Arthralgias In Multiple Sites Text: Cold Urticaria 10/20/2012 Overview (06/02/2014): Text: Cold Urticaria Urticaria 08/24/2012 Overview (05/07/2014): Urticaria Encounters Date Type Department Care Team Description 04/26/2024 4:35 PM EST Lab [facility] [address] [place] [address] Amenorrhea 04/20/2024 [facility] Marla Peguero NP Amenorrhea (Primary Dx) from Last 3 Months Social History Tobacco Use Types Packs/Day Years Used Date Smoking Tobacco: Never Assessed Comments Unknown Sex and Gender Information Value Date Recorded Sex Assigned at Female 03/26/2018 10:37 AM EST Legal Sex Female 3:09 PM EST Gender Identity Female 03/26/2018 10:37 AM EST Sexual Orientation Not on file Last Filed Vital Signs Vital Sign Reading Time Taken Comments Blood Pressure 103/62 10/20/2012 3:38 PM EDT Pulse 86 10/20/2012 3:38 PM EDT Temperature - - Respiratory Rate - - Oxygen Saturation - - Inhaled Oxygen Concentration - - Weight 43.5 kg (96 lb) 10/20/2012 3:38 PM EDT Height 148.6 cm (4' 10.5 ) 10/20/2012 3:38 PM ED T Body Mass Index 19.72 10/20/2012 3:38 PM EDT Plan of Treatment Health Maintenance Due Date Last Done Comments Blood Pressure 2002 Depression Screening 2006 Hepatitis C Screening 2020 Chlamydia and Gonorrhea Screening 05/19/2022 05/19/2021, 12/20/2019, 12/14/2018 Cervical Cancer Screening 10/05/2023 Pap Smear 10/05/2023 COVID-19 Vaccine ( season) 2023 Influenza Vaccine (#1) 2023 , 02/24/2022, 02/21/2021, Additional history exists DTaP,Tdap,and Td Vaccines (2 - Td or Tdap) 02/21/2031 02/21/2021 Meningococcal Vaccines Completed 01/16/2019 Pneumococcal Vaccine: Pediatrics (0 to 5 Years) and At-Risk Patients (6 to 64 Years) Aged Out No longer eligible based on patient's age to complete this topic Procedures Procedure Name Priority Date/Time Associated Diagnosis Comments HCG, QUANTITATIVE Routine 04/26/2024 4:3 7 PM EST Amenorrhea 17-HYDROXYPROGESTERO NE Routine 04/26/2024 4:37 PM EST Amenorrhea TESTOSTERONE, FREE, TOTAL AND BIOAVAILABLE Routine 04/26/2024 4:37 PM EST Amenorrhea DHEA-SULFATE Routine 04/26/2024 4:37 PM EST Amenorrhea ESTRADIOL Routine 04/26/2024 4:37 PM EST Amenorrhea LUTEINIZING HORMONE Routine 04/26/2024 4 :37 PM EST Amenorrhea FOLLICLE STIMULATING HORMONE Routine 04/26/2024 4:37 PM EST Amenorrhea AMPLIFIED PROBE, CHLAM AND GC, SWAB Routine 05/19/2021 3:50 PM EDT Encounter for gynecological examination (general) (routine) without abnormal findings Encounter for screening for infections with a predominantly sexual mode of transmission from Last 3 Months or Most Recently Relevant to Health Maintenance Results * 17-HydroxyProgesterone (04/26/2024 4:37 PM EST) [facility] 17-Hydroxyproges terone 84 see note ng/dL 05/02/2024 2:00 PM EST [facility] Comment: ?? ### Unable to flag abnormal [...] Endocrinol Metab. ??1990;73:674-686; J Clin Endocrinol Metab. ??1988;69;4687-1111; J Clin Endocrinol Metab. ??1994;78:226-270. Pediatr Res 1988;23:525-529. ??MedLinePlus (accessed 08/21/13). ?? This test was developed and its analytical performance characteristics have been determined by [facility] [place], [place]. It has not been cleared or approved by the U.S. Food and Drug Administration. This assay has been validated pursuant to the CLIA regulations and is used for clinical purposes. ?? Blood PERIPHERAL BLOOD SPECIMEN / Unknown Venipuncture / Unknown 04/26/2024 4:37 PM EST 04/26/2024 4:37 PM EST Narrative [facility] - 05/02/2024 2:00 PM EST Performing Organization Information: ?Site ID: [id number] ?Name: [facility] ?Address: [address] [place] [address] ?Director: MONAE ANDERSON MD,PHD Marla Peguero CISCO UNIFIED COMMUNICATIONS ENGINEER LAB BLOOD ORDERABLES Final Res ult Performing Organization Address City/[facility]/ZIP Co de Phone Number [address] [address], * DHEA-Sulfate (04/26/2024 4:37 PM EST) DHEA Sulfate 247 105 - 519 ug/dL 04/27/2024 9:38 AM EST [facility] Blood PERIPHERAL BLOOD SPECIMEN / Unknown Venipuncture / Unknown 04/26/2024 4:37 PM EST 04/26/2024 4:37 PM EST Marla Peguero CISCO UNIFIED COMMUNICATIONS ENGINEER LAB BLOOD ORDERABLES Final Res ult Performing Organization Address City/[facility]/ZIP Co de Phone Number [address] [address] * Estradiol (04/26/2024 4:37 PM EST) Estradiol Level 32 See comment pg/mL 04/26/2024 7:22 PM EST [facility] Comment: Normally Menstruating Females: ?Follicular Phase: [...] drug Fulvestrant (Falsodex) may interfere with the INTENSIVE CARE UNIT NURSE Estradiol assay leading to falsely elevated Estradiol results. ??The potential risks to health applies only to patients being treated with the drug Fulvestrant which may lead to increased Estradiol results. Blood PERIPHERAL BLOOD SPECIMEN / Unknown Venipuncture / Unknown 04/26/2024 4:37 PM EST 04/26/2024 4:37 PM EST us Marla Peguero CISCO UNIFIED COMMUNICATIONS ENGINEER LAB BLOOD ORDERABLES Final Res ult [place] [address] [place] [address], * Testosterone, Free, Total and Bioavailable (04/26/2024 4:37 PM EST) Testosterone 64 40 - 75 ng/dL [facility] [id number] 04/27/2024 9:34 AM [facility] Sex Hormone Binding Globulin 37.7 18.0 - 136.0 nmol/L [facility] [id number] 04/27/2024 9:34 AM [facility] Albumin, Blood 4.2 3.4 - 5.2 g/dL [facility] [id number] 04/27/2024 9:34 AM [facility] Testosterone, Bioavailable 24 >30 ng/dL ng/dL [facility] [id number] 04/27/2024 9:34 AM [facility] Testosterone, Free Calculated 11 <17 pg/mL [facility] [id number] 04/27/2024 9:34 AM EST [facility] Blood PERIPHERAL BLOOD SPECIMEN / Unknown Venipuncture / Unknown 04/26/2024 4:37 PM EST 04/26/2024 4:37 PM EST Marla Peguero CISCO UNIFIED COMMUNICATIONS ENGINEER LAB BLOOD ORDERABLES Final Res ult Performing Organization Address [facility] [place] [address] * HCG, Quantitative (04/26/2024 4:37 PM EST) hCG, Quant <2 <5 mIU/mL 04/26/2024 7:19 PM EST [facility] Comment: ? Weeks Post LMP ? Approximate HCG (last menstrual period) ? 3-4 ??weeks ? 9-130 IU/L ? 4-5 ??weeks ?72-2600 IU/L ? 5-6 ??weeks ? 850-18420 IU/L ? 6-7 ??weeks ?4000-948555 IU/L ? 7-12 weeks ? 85662-242458 IU/L ?12-16 weeks ? 94056-220635 IU/L ?16-29 weeks ?1400-25994 IU/L ?29-41 weeks ? 940-43530 IU/L ?? The B-HCG assays is cleared for use in the early detection of only. ??It is not approved for any other uses such as tumor marker screening, tumor marker monitoring, etc and it should not be performed for any other uses. Blood PERIPHERAL BLOOD SPECIMEN / Unknown Venipuncture / Unknown 04/26/2024 4:37 PM EST 04/26/2024 4:37 PM EST Marla Peguero CISCO UNIFIED COMMUNICATIONS ENGINEER LAB BLOOD ORDERABLES Final Res ult Performing Organization Address City/[facility]/ZIP Co de Phone Number [facility] [address] [place] [address], * Luteinizing Hormone (04/26/2024 4:37 PM EST) LH 10.0 See Comment mIU/mL 04/26/2024 7:21 PM EST [facility] Comment: Normally Menstruating Females: ?? Follicular [...] 04/26/2024 4:37 PM EST us Marla Peguero CISCO UNIFIED COMMUNICATIONS ENGINEER LAB BLOOD ORDERABLES Final Res ult Performing Organization Address [facility] de Phone Number [place] [address] [place] [address], * Follicle Stimulating Hormone (04/26/2024 4:37 PM EST) FSH 5.4 See Comment mIU/ml 04/26/2024 7:22 PM EST [facility] Comment: Males: 1-8 Normally Menstruating Females: ?? Follicular Phase: 4-13 ?? Mid-Cycle Peak ?5-22 ?? Luteal Phase ?2-13 Post-menopausal Females 20-138 Blood PERIPHERAL BLOOD SPECIMEN / Unknown Venipuncture / Unknown 04/26/2024 4:37 PM EST 04/26/2024 4:37 PM EST us Marla Peguero CISCO UNIFIED COMMUNICATIONS ENGINEER LAB BLOOD ORDERABLES Final Res ult Performing Organization Address City/[facility]/ZIP Co de Phone Number [facility] [address] [place] [address], [place] [phone] * Chlamydia and GC, Amplified Probe, Swab (05/19/2021 3:50 PM EDT) N. gonorrhoeae by Amplified Probe Negative Negative 05/20/2021 11:01 AM EDT [facility] C. trachomatis by Amplified Probe Negative Negative 05/20/2021 11:01 AM EDT [facility] Genital 05/19/2021 3:50 PM EDT 05/19/2021 3:50 PM EDT Marla Peguero NP MICROBIOLOGY - GENERAL ORDERAB LES Final Result Performing Organization Address [facility]/ZIP Co de Phone Number [facility] [address] [place] [address], [place] [phone] from Last 3 Months or Most Recently Relevant to Health Maintenance Insurance [facility] I-MD [facility] Organization ([facility]) Address: [address] [place] [address] [facility] ([facility]) Address: [address] [place] [address] [facility] ([facility]) Address: [address] [place] [address] Care Teams Embedded Software Test Engineer Relationship Specialty Start Date End Date Earl Mills MD [address] [place] [address] PCP - General 01/10/24 Earl Mills MD [address] [place] [address] PCP - Insurance Assigned PCP 04/26/24
--- OUTSIDE RECORDS SUMMARY | 2024-06-20 06:24 | XMS_ITS | Encounter Summary ---
Author Organization [facility] Address [address] [place] [address] Care Team Providers Care Physical Science Technician Name Role Phone Earl Mills MD Primary Care Provider [phone] Earl Mills MD Unavailable [phone] Encounter Details Date Type Department Care Team (Late st Contact Info) Description 03/09/2024 Lab Requisition [facility] [address] [place] [address] Marla Peguero NP [address] [facility], [address] [place] [address] Amenorrhea, unspecified Social History Tobacco Use Types Packs/Day [...] Procedure Name Priority Date/Time Associated Diagnosis Comments PROLACTIN Routine 03/09/2024 3:04 PM EST Amenorrhea, unspecified HCG, QUANTITATIVE Routine 03/09/2024 3:0 4 PM EST Amenorrhea, unspecified TSH Routine 03/09/2024 3:04 PM EST Amenorrhea, unspecified documented in this encounter Results * HCG, Quantitative (03/09/2024 3:04 PM EST) Pathologist [facility] hCG, Quant <2 <5 mIU/mL 03/09/2024 9:04 PM EST [facility] Comment: ? Weeks Post LMP ? Approximate HCG (last menstrual period) ? 3-4 ??weeks ? 9-130 IU/L ? 4-5 ??weeks ?72-2600 IU/L ? 5-6 ??weeks ? 850-32921 IU/L ? 6-7 ??weeks ?4000-708387 IU/L ? 7-12 weeks ? 90862-568757 IU/L ?12-16 weeks ? 07688-313358 IU/L ?16-29 weeks ?1400-21466 IU/L ?29-41 weeks ? 940-63658 IU/L ?? The B-HCG assays is cleared for use in the early detection of only. ??It is not approved for any other uses such as tumor marker screening, tumor marker monitoring, etc and it should not be performed for any other uses. Blood PERIPHERAL BLOOD SPECIMEN / Unknown 03/09/2024 3:04 PM EST 03/09/2024 8:15 PM EST us Marla Peguero FINANCIAL SERVICES AUDITOR LAB BLOOD ORDERABLES Final Res ult [facility] [address] [place] [address], [place] [phone] * Prolactin (03/09/2024 3:04 PM EST) Pathologist [facility] Prolactin, Blood 11.8 1.0 - 30.0 ng/mL 03/09/2024 9:17 PM EST [facility] Blood PERIPHERAL BLOOD SPECIMEN / Unknown 03/09/2024 3:04 PM EST 03/09/2024 8:15 PM EST us Marla Peguero FINANCIAL SERVICES AUDITOR LAB BLOOD ORDERABLES Final Res ult Performing Organization Address City/[facility]/ZIP Co de Phone Number [facility] [address] [place] [address], [place] [phone] * TSH (03/09/2024 3:04 PM EST) TSH 0.87 0.35 - 4.94 uIU/mL 03/09/2024 9:17 PM EST [facility] Blood PERIPHERAL BLOOD SPECIMEN / Unknown 03/09/2024 3:04 PM EST 03/09/2024 8:15 PM EST us Marla Peguero FINANCIAL SERVICES AUDITOR LAB BLOOD ORDERABLES Final Res ult Performing Organization Address City/[facility]/ZIP Co de Phone Number [facility] [address] [place] [address], [place] [phone] documented in this encounter Visit Diagnoses Diagnosis Amenorrhea, unspecified documented in this encounter Care Teams Physical Science Technician Relationship Specialty Start Date End Date Earl Mills MD [address] [place] [address] PCP - General 01/10/24 Earl Mills MD [address] [facility] [place] [address] PCP - Insurance Assigned PCP 04/26/24 documented as of this encounter
--- OUTSIDE RECORDS SUMMARY | 2024-06-20 06:24 | XMS_ITS | Encounter Summary ---
Author Organization [facility] Address [address] [place] [address] Care Team Providers Care Engagement Quality Consultant Name Role Phone Desmond Garcia MD Primary Care Provider [phone] Earl Mills MD Primary Care Provider [phone] Earl Mills MD Unavailable [phone] Encounter Details Date Type Department Care Team (Latest Contact Info) Description 05/19/2021 Lab Requisition [facility] [address] [place] [address] Marla Peguero NP [address] [facility], [facility] [address] [place] [address] Encounter for gynecological examination (general) (routine) without [...] Probe Negative Negative 05/20/2021 11:01 AM EDT [facility] C. trachomatis by Amplified Probe Negative Negative 05/20/2021 11:01 AM EDT [facility] Genital 05/19/2021 3:50 PM EDT 05/19/2021 3:50 PM EDT us Marla Leonardoon THERMODYNAMICS PROFESSOR MICROBIOLOGY - GENERAL ORDERAB LES Final Result Performing Organization Address City/State/[facility] Co de Phone Number [facility] [address] [place] [address], documented in this encounter Visit Diagnoses Diagnosis Encounter for gynecological examination (general) (routine) without abnormal findings Encounter for screening for infections with a predominantly sexual mode of transmission documented in this encounter Care Teams Engagement Quality Consultant Relationship Specialty Start Date End Date Desmond Garcia MD [address] [place] [address] PCP - General Pediatric Medicine 03/26/18 01/09/24 Earl Mills MD [address] [place] [address] PCP - General 01/10/24 Earl Mills MD [address] [place] [address] PCP - Insurance Assigned PCP 04/26/24 documented as of this encounter
== END 2024-06-20 06:22 | disposition home or self-care (01) ==
LOC: HO.UMASIMG 06:21
PROVIDERS: Visit Provider Nurse Practitioner Women's Health
DX: N92.6 Irregular menstruation, unspecified (principal)
CPT/HCPCS: 76830; 76856

== ENCOUNTER → 2024-06-20 10:00 | Outpatient (BNV) | payer OTHER, SELFPAY | PROVIDERS: Visit Provider Radiology Diagnostic Radiology | DX: R10.2 Pelvic and perineal pain (principal) | CPT/HCPCS: 76830; 76856 ==